=== PATIENT | male | born 1980 | race Asian ===

== ENCOUNTER 2016-11-14 02:00 | Emergency (ER) | payer BC ==
[~2016-11-14] VITALS: Ht 185.4 cm; Wt 97.1 kg
[2016-11-14] MEDS ORDERED: IV NS 0.9% 1,000 ML ONE ×2 (02:08→02:49)
[2016-11-14] MEDS ORDERED: Magnesium 1GM/D5W 100ML PREMIX 200 ML IV ONE (02:08)
[2016-11-14] MEDS ORDERED: IV SET PRIMARY PUMP SET 1 EA INFUS.SET MC ONE (02:08)
[2016-11-14] MEDS ORDERED: IV SET PRIMARY 1 EA INFUS.SET MC ONE ×2 (02:08→02:49)
--- NOTE | 2016-11-14 02:18 | NUR ---
started a saline lock on the lac g18, blood drawn and sent to lab.
[2016-11-14 02:23] LABS: BASOPHILS % (AUTO) 0.5 % (0.0-2.0); EOSINOPHILS # (AUTO) 0.4 /CMM (0.0-0.7); EOSINOPHILS % (AUTO) 7.2 % (0.0-6.0); HEMATOCRIT 46 % (39-51); HEMOGLOBIN 15.1 g/dL (13.5-17.5); LYMPHOCYTES # (AUTO) 2.6 /CMM (0.8-4.8); LYMPHOCYTES % (AUTO) 45.1 % (20.0-44.0); MEAN CORPUSCULAR HEMOGLOBIN 27 PG (26.0-33.0); MEAN CORPUSCULAR HGB CONC 33 g/dl (31.0-36.0); MEAN CORPUSCULAR VOLUME 82 fL (80-96); MONOCYTES # (AUTO) 0.6 /CMM (0.1-1.30); MONOCYTES % (AUTO) 9.5 % (2.0-12.0); NEUTROPHILS # (AUTO) 2.2 /CMM (1.8-8.9); NEUTROPHILS % (AUTO) 37.7 % (43.0-81.0); PLATELET COUNT (AUTO) 324 /CMM (150-450); RDW COEFFICIENT OF VARIATION 13.8 (11.5-15.0); RED BLOOD CELL COUNT(AUTO) 5.66 MIL/uL (4.5-6.0); WHITE BLOOD COUNT (AUTO) 5.8 K/uL (4.3-11.0)
[2016-11-14] MEDS ORDERED: ASPIRIN 325 MG TABLET ONE (02:23)
[2016-11-14] MEDS ORDERED: ONDANSETRON HCL/PF 4 MG/2 ML VIAL ONE (02:23)
[2016-11-14] MEDS ORDERED: ASPIRIN 325 MG TABLET PO ONE (02:30)
[2016-11-14] MEDS ORDERED: Magnesium 1 GM/2 ML VIAL IV ONE (02:30)
[2016-11-14] MEDS ORDERED: IV NS 0.9% 1,000 ML BAG IV ONE (02:30)
[2016-11-14] MEDS ORDERED: ONDANSETRON HCL/PF 4 MG/2 ML VIAL IVP ONE (02:30)
[2016-11-14] MEDS ORDERED: ETOMIDATE 2 MG/ML VIAL ONE (02:38)
[2016-11-14 02:39] LABS: CALCIUM, SERUM 8.3 mg/dL (8.5-10.1); POTASSIUM 3.5 mmol/L (3.5-5.1)
[2016-11-14 02:40] LABS: INR 0.97 (0.87-1.13); PROTHROMBIN TIME 10.4 SECS (9.5-12.7)
--- NOTE | 2016-11-14 03:10 | NUR ---
0301 etomidate 20mg ivp given prior to cardioversion for moderate sedation under Dr Yusuf. 2 RN's, 1 RT at bedside, patent airway maintained. Patient on 15lpm nonreabreather mask. Cardiac monitoring on. IV NS bolus ongoing to lac g18. Safety measures checked and observed. 0303 Synchronized Cardioversion Biphasic applied one time at 120 joules. Ekg done. Per Dr Yusuf, patient converted to sinus rhythm, HR 70--80's. Ongoing monitoring post sedation, patient is still asleep. VSS at this time.
--- NOTE | 2016-11-14 03:11 | NUR ---
2nd IV NS 1L bolus to lac g18 ongoing per Dr Yusuf's verbal order.
--- NOTE | 2016-11-14 03:14 | NUR ---
Patient responsive to verbal and tactile stimuli, denies any pain or discomfort. VSS. Ongoing cardiac monitoring.
--- NOTE | 2016-11-14 04:07 | NUR ---
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
--- NOTE | 2016-11-14 06:30 | NUR ---
IV removed. Catheter intact and site benign. Pressure and 4x4 applied to site. No bleeding noted. Patient discharged to home in stable condition. Written and verbal after care instructions given. Patient verbalizes understanding of instruction. Patient is ambulatory with steady gait.
[2016-11-14 06:32] VITALS: BP 115/78
== END 2016-11-14 06:32 | disposition home or self-care (01) ==
LOC: ER 02:05
DX: I48.91 Unspecified atrial fibrillation (principal); F10.129 Alcohol abuse with intoxication, unspecified; Z79.82 Long term (current) use of aspirin
CPT/HCPCS: 36415; 71010-TC; 80048-TC; 85025-TC; 85730-TC; A4606; J2405; J3475; J3490; J7030; Z7610